=== PATIENT | female | born 1970 | race Caucasian/White ===

== ENCOUNTER 2019-10-03 09:15 | Emergency (ER) | payer OTHER ==
[~2019-10-03] VITALS: Ht 162.6 cm; Wt 65.8 kg
[2019-10-03 09:32] VITALS: Ht 162.6 cm; Wt 65.8 kg
[2019-10-03 10:20] VITALS: BP 136/76
== END 2019-10-03 10:20 | disposition home or self-care (01) ==
LOC: ED 09:15
DX: S40.812A Abrasion of left upper arm, initial encounter (principal); M54.2 Cervicalgia; Z90.710 Acquired absence of both cervix and uterus; V43.52XA Car driver injured in collision with other type car in traffic accident, initial encounter; Y93.I9 Activity, other involving external motion; Y92.411 Interstate highway as the place of occurrence of the external cause; Y99.8 Other external cause status